=== PATIENT | male | born 1990 | race Caucasian/White ===

== ENCOUNTER 2021-12-12 06:04 | Day surgery (SDC) | payer OTHER ==
[~2021-12-12 06:04] MED LIST: BUPIVACAINE/PF (0.25%) 2.5 MG/ML 30 ML VIAL INFILTRATI ONE; LACTATED RINGERS 1,000 ML IV SCH; LIDOCAINE (1%) 10 MG/1 ML VIAL 20 ML MDV INFILTRATI ONE; MIDAZOLAM 2 MG/2 ML INJ IV NR; SODIUM CHLORIDE 0.9% IRR 1,500 ML BOTTLE IR ONE
[2021-12-12] MEDS ORDERED: BUPIVACAINE/PF (0.25%) 2.5 MG/ML 30 ML VIAL INFILTRATI ONE ×2 (07:09→08:17)
[2021-12-12] MEDS ORDERED: LIDOCAINE (1%) 10 MG/1 ML VIAL 20 ML MDV ONE (07:09)
[2021-12-12] MEDS ORDERED: HYDROmorphone 1 MG/1 ML INJ IV PRN (07:15)
[2021-12-12] MEDS ORDERED: ONDANSETRON 4 MG/2 ML INJ IV PRN (07:15)
[2021-12-12] MEDS ORDERED: HYDROcodone/ACETAMINOPHEN 5-325 MG TAB PO PRN (07:15)
[2021-12-12] MEDS ORDERED: FAMOTIDINE 20 MG/2 ML INJ IV NR (07:26)
--- NOTE | 2021-12-12 07:26 | Anesthesia Day of Surgery ---
Anesthesia Day of Surgery - Day of Surgery Patient Examined: Yes Patient H&P Reviewed: Yes Patient is NPO: Yes
--- NOTE | 2021-12-12 07:26 | Anesthesia Consultation ---
<VIRGINIA YEPEZ - Last Filed: 12/12/21 07:23> Anesthesia Consult and Med Hx Date of service: 12/12/21 - Airway Anesthetic Teeth Evaluation: Good ROM Head & Neck: Adequate Mallampati Class: Class III Intubation Access Assessment: Possibly Difficult - Pre-Operative Health Status ASA Pre-Surgery Classification: ASA2 Proposed Anesthetic Plan: General, MAC - Pulmonary Hx Smoking: No Hx Sleep Apnea: No (snores, [employer] PRE SCREEN high RISK) - Cardiovascular System Hx Hypertension: No (elevated on the day of surgery) Hx Heart Attack/AMI: No - Central Nervous System Hx Psychiatric Problems: No - Hematic Hx Anemia: No Hx Sickle Cell Disease: No - Other Systems Hx Alcohol Use: No Hx Substance Use: No Hx Cancer: No Hx Obesity: Yes (overweight) <CLAUDETTE BEEBE - Last Filed: 12/12/21 07:36> Anesthesia Consult and Med Hx - Pre-Operative Health Status ASA Pre-Surgery Classification: ASA2 - Pre-Anesthesia Comment Pre-Anesthesia Comments: GA vs MAC pending discussion with surgeon regarding extent of intended procedure. Patient agreeable to both.
[2021-12-12] MEDS ORDERED: propofoL 200 MG/20 ML VIAL IV ONE ×2 (07:37→08:09)
[2021-12-12] MEDS ORDERED: HYDROmorphone 1 MG/1 ML INJ ONE (07:37)
[2021-12-12] MEDS ORDERED: LIDOCAINE MPF (2%) 20 MG/1 ML VIAL 5 ML ONE (07:38)
[2021-12-12] MEDS ORDERED: ceFAZolin/Water 2 GM/20 ML 2 GM/20 ML SYRINGE IV ONE (07:39)
[2021-12-12] MEDS ORDERED: ceFAZolin/STERILE WATER 2 GM/20 ML SYRINGE IV NR (07:40)
[2021-12-12] MEDS ORDERED: MIDAZOLAM 2 MG/2 ML INJ ONE (07:51)
[2021-12-12] MEDS ORDERED: SODIUM CHLORIDE 0.9% IRR 1,500 ML BOTTLE IR ONE (08:17)
[2021-12-12] MEDS ORDERED: LIDOCAINE (1%) 10 MG/1 ML VIAL 20 ML MDV INFILTRATI ONE (08:17)
[2021-12-12] MEDS ORDERED: BACITRACIN ZINC OINT 28.4 GM TP ONE ×2 (08:39→08:40)
--- NOTE | 2021-12-12 09:09 | Short Stay Summary ---
Short Stay Documentation Date of service: 12/12/21 - History Principal diagnosis: SCALP MASS H&P: obtained from office - Allergies and Medications Current Medications: Allergies No Known Allergies Allergy (Verified 11/15/21 16:57) Home Medications Medication Instructions Recorded Confirmed Last Taken Type No Known Home Medications [No 11/15/21 11/15/21 Unknown History Reported Home Medications] Active Medications Hydrocodone Bitart/Acetaminophen (Hydrocodone/Acetaminophen 5-325 Mg Tab) 2 each PO ONCE PRN PRN Reason: Pain, Moderate (4-6) Stop: 12/12/21 11:00 Famotidine (Famotidine 20 Mg/2 Ml Inj) 20 mg IV ONCE NR Stop: 12/12/21 10:00 Hydromorphone HCl (Hydromorphone 1 Mg/1 Ml Inj) 0.5 mg IV Q10MIN PRN PRN Reason: Pain , Severe (7-10) Stop: 12/12/21 20:00 Lactated Ringer's (Lactated Ringers) 1,000 mls @ 100 mls/hr IV DIRECT JOSE MIGUEL Stop: 12/12/21 23:59 Last Admin: 12/12/21 06:36 Dose: 100 mls/hr Midazolam HCl (Midazolam 2 Mg/2 Ml Inj) 2 mg IV PREOP NR Stop: 12/12/21 23:59 Ondansetron HCl (Ondansetron 4 Mg/2 Ml Inj) 4 mg IV ONCE PRN PRN Reason: Nausea And Vomiting Stop: 12/12/21 12:00 - Brief post op/procedure progress note Date of procedure: 12/12/21 Pre-op diagnosis: left parietal scalp mass Post-op diagnosis: same Procedure: excision of scalp mass Anesthesia: MAC, local Findings: 4.5 cm cyst of scalp Surgeon: PATRIZIA DEGROOT Estimated blood loss: minimal Pathology: list (scalp cyst) Specimen disposition: to lab Condition: stable - Hospital course Hospital course: Pt observed in PACU and discharged to home in stable condition - Disposition Condition at discharge: Good Disposition: 01 HOME / SELF CARE / HOMELESS Short Stay Discharge Plan Activity: no restrictions Diet: regular Wound: per your surgeon's advice Follow up with: PRIMARY CARE, [Primary Care Provider] - 7 Days PATRIZIA DEGROOT DO [Staff Physician] - 14 Days Prescriptions: HYDROcodone/APAP 5-325 [[place] 5/325] 1 each PO Q6HR PRN #5 tablet PRN Reason: Pain
[2021-12-12 12:39] VITALS: BP 129/90
--- NOTE | 2021-12-12 15:29 | Post Anesthesia Evaluation ---
- Post Anesthesia Evaluation Patient Participated: Yes Airway Patent: Yes Stable Respiratory Function: Yes Nausea/Vomiting: No Temp > 96.8F: Yes Pain Manageable: Yes Adequeate Hydration: Yes Anesthesia Complications: No
--- NOTE | 2021-12-22 10:36 | Operative Report ---
Operative Report Operative Report: Date of procedure: 12/12/21 Pre-op diagnosis: left parietal scalp mass Post-op diagnosis: same Procedure: excision of scalp mass Anesthesia: MAC, local Findings: 4.5 cm cyst of scalp Surgeon: PATRIZIA DEGROOT Estimated blood loss: minimal Pathology: list (scalp cyst) Specimen disposition: to lab Condition: stable Hospital course: Pt observed in PACU and discharged to home in stable condition Indication: Patient is a 31-year-old male who presented to the office for a workup of a scalp cyst that had been growing in size and becoming more painful. It was recommended that the patient undergo excision. He was agreeable. All risks, benefits, alternatives to surgery were discussed and questions answered. Consent obtained. Procedure in detail: Patient was identified in the preoperative area, taken back to the operating room, placed on the operating room table in supine position. After anesthesia was induced, the left scalp was prepped and draped in usual sterile fashion and a timeout was performed. Local anesthetic was injected into the skin at the intended incision site. An [elliptical] incision was made in the skin over the cyst using a 15 blade. Dissection was carried down through the skin using electrocautery. The cyst was chronically inflamed with a thickened wall. Using a combination of blunt dissection with a hemostat and sharp dissection with metzenbaum scissors, the cyst wall was carefully dissected away from the surrounding tissue circumferentially. Once normal fatty tissue was identified the cyst wall in its entirety was removed from the subcutaneous tissue using Bovie electrocautery. This was measured at approximately 4.5 cm and then passed off the table as a specimen. The wound was then irrigated and hemostasis achieved with electrocautery. The skin was closed with 3-0 Prolene interrupted stitches. Bacitracin ointment was applied to the incision and this was covered with 4 x 4 gauze and secured with Medipore tape. At the end of the case, all sponge, instrument, sharp counts were correct 2. The patient was awoken from anesthesia and taken to PACU in stable condition.
== END 2021-12-12 10:00 | disposition home or self-care (01) ==
LOC: OR 06:04
PROVIDERS: ATTEND Surgery
DX: R22.0 Localized swelling, mass and lump, head (principal); D23.4 Other benign neoplasm of skin of scalp and neck; E66.9 Obesity, unspecified; Z20.822 Contact with and (suspected) exposure to COVID-19; Z79.899 Other long term (current) drug therapy; Z68.32 Body mass index [BMI] 32.0-32.9, adult
CPT/HCPCS: 11426; 88305; J0690; J1170; J2250; J2704; J3490; J7120; U0003; 88304